=== PATIENT | male | born 1955 | race African-American/Black ===

== ENCOUNTER 2017-10-06 10:02 | Inpatient (IN) | payer SELFPAY ==
[~2017-10-06] VITALS: Ht 172.7 cm; Wt 108.9 kg
[2017-10-06 11:51] LABS: BASOPHILS % 0.4 % (0.0-2.0); EOSINOPHILS % 1.6 % (0.0-5.0); HEMATOCRIT. 48.2 % (42.0-52.0); HEMOGLOBIN. 16.1 g/dL (14.0-18.0); LYMPHOCYTES % 37.7 % (20.0-50.0); MEAN CORPUSCULAR HEMOGLOBIN 30.1 pg (28.0-32.0); MEAN CORPUSCULAR VOLUME 89.8 fL (80.0-94.0); MEAN PLATELET VOLUME 8.4 fl (7.4-10.4); MONOCYTES % 6.3 % (2.0-8.0); PLATELET 176 x1000/uL (130-400); RED BLOOD CELL COUNT 5.37 mill/uL (4.7-6.1); RED CELL DISTRIBUTION WIDTH 13.5 % (11.6-14.6)
[2017-10-06 11:57] LABS: CHLORIDE 102 mEq/L (98-107); PROTHROMBIN TIME 10.7 sec (9.4-11.6)
[2017-10-06] MEDS ORDERED: HYDRALAZINE 20MG/ML VIAL IV ONE (13:15)
[2017-10-06] MEDS ORDERED: ASPIRIN 81MG TABLET PO ONE (13:15)
[2017-10-06] MEDS ORDERED: PREDNISONE 20MG TABLET PO ONE (15:15)
[2017-10-06] MEDS ORDERED: GUAIFENESIN 200MG/10ML SUGAR FREE UDC PO PRN (15:45)
[2017-10-06] MEDS ORDERED: ACETAMINOPHEN 325MG TABLET PO PRN (15:45)
[2017-10-06] MEDS ORDERED: CLONIDINE 0.1MG TABLET PO PRN (15:45)
[2017-10-06] MEDS ORDERED: IPRATROPIUM/ALBUTEROL 0.5-3(2.5)MG/3ML NEB INH PRN (15:45)
[2017-10-06] MEDS ORDERED: LORAZEPAM 0.5MG TABLET PO PRN (15:45)
[2017-10-06] MEDS ORDERED: ONDANSETRON HCL 4MG/2ML VIAL IV PRN (15:45)
[2017-10-06] MEDS ORDERED: MAGNESIUM/ALUMINUM HYDROXIDE/SIMETHICONE 30ML UDC PO PRN (15:45)
[2017-10-06] MEDS ORDERED: NITROGLYCERIN 0.4MG TABLET SL SL PRN (15:45)
[2017-10-06] MEDS ORDERED: DOCUSATE SODIUM 100MG CAPSULE PO PRN (15:45)
[2017-10-06] MEDS ORDERED: KETOROLAC 15MG/ML VIAL IV PRN (16:30)
[2017-10-06] MEDS ORDERED: NA PHOS,M-B/NA PHOS,DI-BA ENEMA 118ML PR PRN (20:00)
[2017-10-06] MEDS ORDERED: FAMOTIDINE 20MG TABLET PO SCH (21:00)
[2017-10-06] MEDS ORDERED: ZOLPIDEM TARTRATE 5MG TABLET PO PRN (21:00)
[2017-10-06 21:05] VITALS: BP 171/111
[2017-10-06] MEDS: METOPROLOL TARTRATE 25MG TABLET PO SCH (21:13)
[2017-10-06] MEDS: ENOXAPARIN 30MG/0.3ML SYR SUBCUT SCH (21:15)
[2017-10-06] MEDS: AMLODIPINE 10MG TABLET PO SCH (21:16)
[2017-10-06 21:58] VITALS: BP 171/111
[2017-10-06 22:15] VITALS: BP 125/79
[2017-10-06 23:41] LABS: CREATINE KINASE MB FRACTION 1.6 ng/mL (0.5-3.6)
[2017-10-07] VITALS: BP 150/94
[2017-10-07] MEDS ORDERED: COLC0.6C3 PO (02:50)
[2017-10-07] MEDS ORDERED: ALLO300T2 PO (02:50)
[2017-10-07] MEDS ORDERED: LISI10TA5 PO (02:50)
[2017-10-07] MEDS ORDERED: ATEN50TA PO (02:50)
[2017-10-07] MEDS ORDERED: AMLO10TA80 PO (02:50)
[2017-10-07] MEDS ORDERED: TAMS0.4C31 PO (02:50)
[2017-10-07 04:00] VITALS: BP 157/99
[2017-10-07 06:48] LABS: CREATINE KINASE MB FRACTION 1.4 ng/mL (0.5-3.6)
[2017-10-07 07:03] LABS: *BARBITURATES SCREEN URINE NEGATIVE (NEGATIVE)
[2017-10-07 07:04] LABS: *AMPHETAMINES SCREEN URINE NEGATIVE (NEGATIVE); *BENZODIAZEPINES SCREEN URINE NEGATIVE (NEGATIVE); *COCAINE SCREEN URINE NEGATIVE (NEGATIVE); METHADONE URINE SCREEN NEGATIVE (NEGATIVE)
[2017-10-07 07:05] LABS: CANNABINOID URINE SCREEN NEGATIVE (NEGATIVE); OPIATES URINE SCREEN NEGATIVE (NEGATIVE); PHENCYCLIDINE URINE SCREEN NEGATIVE (NEGATIVE)
[2017-10-07 07:52] VITALS: BP 139/88
[2017-10-07] MEDS: METOPROLOL TARTRATE 25MG TABLET PO SCH (08:18)
[2017-10-07] MEDS: AMLODIPINE 10MG TABLET PO SCH (08:19)
[2017-10-07] MEDS: ENOXAPARIN 30MG/0.3ML SYR SUBCUT SCH (08:20)
[2017-10-07] MEDS ORDERED: ASPIRIN 325MG EC TABLET PO SCH (09:00)
[2017-10-07 09:54] VITALS: BP 139/88
== END 2017-10-07 11:20 | disposition home or self-care (01) | DRG 199 ==
LOC: ER 11:21 → 8WST 13:45 → ENRESERV 18:29
PROVIDERS: ADMIT Internal Medicine; ATTEND Internal Medicine
DX: I10 Essential (primary) hypertension (principal); N17.0 Acute kidney failure with tubular necrosis; E78.5 Hyperlipidemia, unspecified; I25.10 Atherosclerotic heart disease of native coronary artery without angina pectoris; M10.9 Gout, unspecified; Z86.73 Personal history of transient ischemic attack (TIA), and cerebral infarction without residual deficits; Z95.5 Presence of coronary angioplasty implant and graft
CPT/HCPCS: 36415; 71045; 80053; 80061; 80305; 82550; 82553; 83036; 83880; 84484; 85025; 85610; 93005; 93970; J0360; J1650; J7512

== ENCOUNTER 2017-12-23 01:06 | Emergency (ER) | payer SELFPAY ==
[~2017-12-23] VITALS: Ht 177.8 cm; Wt 81.0 kg
[~2017-12-23 01:06] MED LIST: ALLO300T2 PO; AMLO10TA80 PO; ATEN50TA PO; COLC0.6C3 PO; LISI10TA5 PO; TAMS0.4C31 PO
[2017-12-23] MEDS ORDERED: SODIUM CHLORIDE 0.9% 1,000 ML IV ONE (02:00)
[2017-12-23 02:34] LABS: BASOPHILS % 0.4 % (0.0-2.0); HEMATOCRIT. 47.8 % (42.0-52.0); HEMOGLOBIN. 15.9 g/dL (14.0-18.0); LYMPHOCYTES % 37.3 % (20.0-50.0); MEAN CORPUSCULAR HEMOGLOBIN 30.3 pg (28.0-32.0); MEAN CORPUSCULAR VOLUME 91.2 fL (80.0-94.0); MEAN PLATELET VOLUME 8.4 fl (7.4-10.4); MONOCYTES % 5.4 % (2.0-8.0); NEUTROPHILS % 55.9 % (40.0-76.0); PLATELET 171 x1000/uL (130-400); RED BLOOD CELL COUNT 5.25 mill/uL (4.7-6.1); RED CELL DISTRIBUTION WIDTH 13.7 % (11.6-14.6)
[2017-12-23 02:34] LABS: CLARITY URINE CLEAR (CLEAR); COLOR URINE YELLOW (YELLOW); KETONES URINE NEGATIVE (NEGATIVE); LEUKOCYTE ESTERASE URINE NEGATIVE (NEGATIVE); NITRITE URINE NEGATIVE (NEGATIVE); OCCULT BLOOD URINE NEGATIVE (NEGATIVE); PROTEIN URINE TRACE (NEGATIVE); SPECIFIC GRAVITY URINE 1.015 (1.005-1.030); UROBILINOGEN URINE 0.2 E.U./dL (0.2-1.0)
[2017-12-23 02:36] LABS: CHLORIDE 103 mEq/L (98-107)
[2017-12-23 06:22] VITALS: BP 152/58
== END 2017-12-23 06:26 | disposition home or self-care (01) ==
LOC: ER 01:06
DX: R42 Dizziness and giddiness (principal); I10 Essential (primary) hypertension; E78.00 Pure hypercholesterolemia, unspecified; R53.1 Weakness; Z79.899 Other long term (current) drug therapy
CPT/HCPCS: 36415; 71045; 80053; 81003; 84484; 85025; 93005; 96360; 99285; J7030